=== PATIENT | male | born 1945 | race Caucasian/White ===

== ENCOUNTER 2019-07-12 10:53 | Emergency (ER) | payer MEDICARE, OTHER ==
--- NOTE | 2019-07-12 11:11 | ER Document Report ---
ED Medical Screen (RME) - General Chief Complaint: Chest Pain Stated Complaint: CHEST PAIN Time Seen by Provider: 07/12/19 11:06 Mode of Arrival: Ambulatory Information source: Patient Notes: 74-year-old male presented to ED for complaint of chest pain that started yesterday. States he was outside putting in windows outside when the pain started he states it started raining he got frustrated irritated and then the rain stopped and he got very hot when chest pain started. He states during the night last night he took 5 or 6 nitros and then he took another one this morning. He states they helped some but not completely. He states his pain was all 4-5 this morning. He states he does have a history of a quadruple bypass in 08 has a history of high blood pressure and cholesterol. He denies smoking drinking or doing any drugs. He is alert oriented and answering all questions appropriately and respirations are regular and unlabored at this time I have greeted and performed a rapid initial assessment of this patient. A comprehensive ED assessment and evaluation of the patient, analysis of test results and completion of medical decision making process will be conducted by an additional ED providers. TRAVEL OUTSIDE OF THE [place] IN LAST 30 DAYS: No - Related Data Allergies/Adverse Reactions: No Known Allergies Allergy (Verified 07/12/19 10:54) Physical Exam - Vital signs Vitals: Temp Pulse Resp BP Pulse Ox 97.7 F 95 18 136/66 H 98 07/12/19 11:05 07/12/19 11:05 07/12/19 11:05 07/12/19 11:05 07/12/19 11:05 Course - Vital Signs Vital signs: Temp Pulse Resp BP Pulse Ox 97.7 F 95 18 136/66 H 98 07/12/19 11:05 07/12/19 11:05 07/12/19 11:05 07/12/19 11:05 07/12/19 11:05
--- NOTE | 2019-07-12 11:23 | ER Document Report ---
ED General - General Chief Complaint: Chest Pain Stated Complaint: CHEST PAIN Time Seen by Provider: 07/12/19 11:06 Mode of Arrival: Ambulatory Information source: Patient Notes: HPI: 74-year-old male who presents today with some substernal "pressure" chest discomfort starting last night. He states it is been intermittent since that time. Not exertional. Nausea with vomiting x1 this morning. He has had some intermittent diaphoresis. No calf pain, leg swelling, recent trips or travel. Minimal shortness of breath. Patient has a history of a CABG in 2008 with 2 stents placed after cardiac catheterization in 2018. Patient is followed at [facility]. Patient did take nitroglycerin with some relief and only took 325 mg of aspirin. Patient also takes Plavix daily. Patient currently denies any chest pain at this time. ROS: See HPI All other review of systems reviewed and otherwise negative Reviewed vital signs and nursing note as charted by RN. PHYSICAL EXAM: CONSTITUTIONAL: Alert and oriented and responds appropriately to questions. Well-appearing; well-nourished HEAD: Normocephalic; atraumatic EYES: PERRL; Conjunctivae clear, sclerae non-icteric ENT: Normal nose; no rhinorrhea; moist mucous membranes; pharynx without lesions noted NECK: Supple without meningismus; non-tender; no cervical lymphadenopathy, no masses CARD: Regular rate and rhythm; old midline scar; no murmurs; symmetric distal pulses RESP: Normal chest excursion without splinting or tachypnea; breath sounds clear and equal bilaterally; no wheezes, no rhonchi, no rales ABD/GI: Normal bowel sounds; non-distended; soft, non-tender; no palpable organomegaly or masses BACK: The back appears normal and is non-tender to palpation EXT: Normal ROM in all joints; non-tender to palpation; no edema SKIN: No acute lesions noted NEURO: CN 2-12 intact; 5/5 bilateral upper and lower extremity strength with sensation intact to light touch PSYCH: The patient's mood and manner are appropriate. Grooming and personal hygiene are appropriate. TRAVEL OUTSIDE OF THE [place] IN LAST 30 DAYS: No - Related Data Allergies/Adverse Reactions: No Known Allergies Allergy (Verified 07/12/19 10:54) Past Medical History - General Information source: Patient - Social History Smoking Status: Never Smoker Family History: Reviewed & Not Pertinent Patient has suicidal ideation: No Patient has homicidal ideation: No Renal/ Medical History: Denies: Hx Peritoneal Dialysis Physical Exam - Vital signs Vitals: Temp Pulse Resp BP Pulse Ox 97.7 F 95 18 136/66 H 98 07/12/19 11:05 07/12/19 11:05 07/12/19 11:05 07/12/19 11:05 07/12/19 11:05 Course - Re-evaluation Re-evalutation: EKG shows a heart of 91, normal sinus rhythm, left axis deviation, no obvious ST elevation, inverted T waves in leads I, aVL, V4 through V6 with possible some ST depressions located V4 through V6. Poor R wave progression 07/12/19 11:34 Given the history and physical examination, with vital signs as recorded, no calf pain or leg swelling, no radiation to the back, no real shortness of breath, currently pain-free, no history of blood clotting disorders, I do believe pulmonary embolism and aortic dissection to be unlikely. EKG does look irregular. We have no old EKGs at this time. Patient however is chest pain- free at this time. He has already taken his Plavix and aspirin. I did discuss the case with the structural manager reviewed the EKG. He has enough clinical concern that he would like me to start the patient on a heparin bolus and drip at this time. He will help call the structural manager at the outside facility. Patient understands the plan that we have initiated. 07/12/19 12:07 Patient's troponin as recorded. Current chest pain-free. X-ray of the chest shows cardiomegaly with increased lung markings bilaterally without pleural effusions. I have called the transfer center and we will order a repeat EKG. - Vital Signs Vital signs: Temp Pulse Resp BP Pulse Ox 97.7 F 95 18 136/66 H 98 07/12/19 11:05 07/12/19 11:05 07/12/19 11:05 07/12/19 11:05 07/12/19 11:05 - Laboratory Result Diagrams: 07/12/19 11:18 07/12/19 11:18 Laboratory results interpreted by me: 07/12/19 07/12/19 07/12/19 11:18 11:18 11:18 Hgb 13.3 L MCH 26.5 L RDW 15.3 H Chloride 97 L Glucose 236 H AST 145 H Creatine Kinase 700 H CK-MB (CK-2) 82.10 H Critical Care Note - Critical Care Note Total time excluding time spent on procedures (mins): 35 Discharge - Discharge Clinical Impression: NSTEMI (non-ST elevated myocardial infarction) Condition: Fair Disposition: OTHER
[2019-07-12] MEDS ORDERED: NITROGLYCERIN 2% OINTMENT 1 GM PACKET TP ONE (11:29)
[2019-07-12 11:31] LABS: ABSOLUTE LYMPHOCYTES (AUTO) 1.5 10^3/uL (0.5-4.7); ABSOLUTE NEUT (AUTO) 7.9 10^3/uL (1.7-8.2); BASOPHILS % (AUTO) 0.2 % (0-2); EOSINOPHILS % (AUTO) 0.1 % (0-6); HEMATOCRIT 40.9 % (37.9-51.0); HEMOGLOBIN 13.3 g/dL (13.5-17.0); MEAN CORPUSCULAR HEMOGLOBIN 26.5 pg (27.0-33.4); MEAN CORPUSCULAR HGB CONC 32.6 g/dL (32.0-36.0); MEAN CORPUSCULAR VOLUME 82 fl (80-97); MONOCYTES % (AUTO) 9.5 % (3-13); PLATELET COUNT 157 10^3/uL (150-450); RED BLOOD COUNT 5.02 10^6/uL (4.35-5.55); RED CELL DISTRIBUTION WIDTH 15.3 % (11.5-14.0); SEGMENTED NEUTROPHILS % (AUTO) 76.2 % (42-78); TOTAL CELLS COUNTED % (AUTO) 100 %; WHITE BLOOD COUNT 10.4 10^3/uL (4.0-10.5)
[2019-07-12] MEDS ORDERED: HEPARIN SODIUM,PORCINE/D5W 25,000 UNIT/250 ML RTUINJ IV PRN (11:33)
[2019-07-12] MEDS ORDERED: HEPARIN SOD (PORCINE) 1,000 UNIT/ML 10 ML VIAL IV ONE (11:33)
[2019-07-12 11:50] LABS: ALBUMIN 4.6 g/dL (3.5-5.0); ALKALINE PHOSPHATASE 68 U/L (38-126); ANION GAP 14 (5-19); ASPARTATE AMINO TRANSFERASE 145 U/L (17-59); BILIRUBIN,DIRECT 0.3 mg/dL (0.0-0.4); BILIRUBIN,TOTAL 0.8 mg/dL (0.2-1.3); BLOOD UREA NITROGEN 17 mg/dL (7-20); CALCIUM 9.7 mg/dL (8.4-10.2); CARBON DIOXIDE 27 mmol/L (22-30); CHLORIDE 97 mmol/L (98-107); CREATINE KINASE 700 U/L (55-170); GLUCOSE 236 mg/dL (75-110); POTASSIUM 4.8 mmol/L (3.6-5.0); TOTAL PROTEIN 7.2 g/dL (6.3-8.2)
[2019-07-12 11:51] LABS: INTERNATIONAL RATION (INR) 1.22; PROTHROMBIN TIME 15.4 SEC (11.4-15.4)
[2019-07-12 11:52] LABS: PARTIAL THROMBOPLASTIN TIME 28.7 SEC (23.5-35.8)
[2019-07-12] MEDS ORDERED: HEPARIN SOD (PORCINE) 1,000 UNIT/ML 10 ML VIAL IV PRN (12:00)
[2019-07-12 12:01] LABS: CREATINE KINASE MB 82.1 ng/mL (<4.55)
[2019-07-12 12:05] LABS: TROPONIN I 3.32 ng/mL
--- NOTE | 2019-07-12 12:10 | RADIOLOGY REPORT (SQ) ---
EXAM DESCRIPTION: CHEST 2 VIEWS COMPLETED DATE/TIME: 07/12/2019 11:39 am REASON FOR STUDY: chest pain COMPARISON: None. EXAM PARAMETERS: NUMBER OF VIEWS: two views TECHNIQUE: Digital Frontal and Lateral radiographic views of the chest acquired. RADIATION DOSE: NA LIMITATIONS: none FINDINGS: LUNGS AND PLEURA: There are trace bilateral pleural effusions. No consolidation or pneumo thorax. MEDIASTINUM AND HILAR STRUCTURES: No masses or contour abnormalities. HEART AND VASCULAR STRUCTURES: The heart is mildly enlarged. There is mild interstitial edema. BONES: No acute findings. HARDWARE: Sternotomy wires are present. IMPRESSION: Mild cardiomegaly with mild interstitial edema and trace bilateral pleural effusions. TECHNICAL DOCUMENTATION: JOB ID: [id number] [employer]- All Rights Reserved Reading location - IP/workstation name: [email or web address]
[2019-07-12 13:21] VITALS: BP 141/77
--- NOTE | 2019-07-12 19:11 | EKG REPORT ---
SEVERITY:- ABNORMAL ECG - SINUS RHYTHM PROBABLE LEFT ATRIAL ABNORMALITY BORDERLINE LEFT AXIS DEVIATION REPOL ABNRM SUGGESTS ISCHEMIA, ANT-LAT LEADS : Confirmed by: Vandana Jin MD 12-Jul-2019 19:10:06
== END 2019-07-12 16:21 | disposition other institution (70) ==
LOC: ER 10:53
DX: I21.4 Non-ST elevation (NSTEMI) myocardial infarction (principal); R07.9 Chest pain, unspecified; R11.2 Nausea with vomiting, unspecified; R61 Generalized hyperhidrosis; Z79.01 Long term (current) use of anticoagulants; Z79.82 Long term (current) use of aspirin
CPT/HCPCS: 93005; 36415; 82553; 82962; 82550; 83690; 85025; 85610; 85730; 80053; 84484; 71046; 93010; J1644 ×2; A9270; 96365; 99285